=== PATIENT | female | born 1985 | race Caucasian/White ===

== ENCOUNTER 2016-12-25 17:09 | Outpatient (CLI) | payer OTHER ==
[~2016-12-25] VITALS: Ht 160 cm; Wt 96.6 kg
[~2016-12-25 17:09] MED LIST: DICY10CA60 PO; ONDA4TAB35 PO; PREN1TAB49 PO
[2016-12-25 17:24] VITALS: BP 106/56; Ht 160 cm; Wt 96.6 kg
[2016-12-25 18:26] LABS: URINE BLOOD (Dip) POC Negative (NEGATIVE)
--- NOTE | 2016-12-25 18:48 | CONS ---
Date/Time of Note Date/Time of Note DATE: 12/25/16 TIME: 18:43 Consultation Date/Type/Reason Admit Date/Time December 25, 2069 OB triage consult Reason for Consultation This patient is a 31 years old 2 para 1 living 1 who delivered her first child with section . Her estimated date of confinement is 04/23/2017 which makes her 23 weeks now She came to triage clinic complaining of a lower abdominal pressure since last night On general examination she is a well-developed well-nourished lady in her mid . Her vital signs are normal ,blood pressure 106/56, pulse rate 78, respiration 16 ,temperature 98.1. On pelvic examination vulva and vagina appears to be normal cervix is closed and thick and no bladder tenderness Urine was tested with dipstick result is negative Hx of Present Illness Laboratory Tests Test 12/25/16 18:28 Bedside Urine pH (LAB) 6.5 Bedside Urine Protein (LAB) Negative Bedside Urine Glucose (UA) Negative Bedside Urine Ketones (LAB) Negative Bedside Urine Blood Negative Bedside Urine Nitrite (LAB) Negative Bedside Urine Leukocyte Esterase (L Negative Constitutional: No chills, No diaphoresis, No disoriented, No febrile, No improved, No no complaints, No other, No poor po, No requiring IVF, No requiring O2 Eyes: No discharge, No no complaints, No other, No pain, No redness, No visual change ENT: No bleeding, No congestion, No discharge, No dysphagia, No no complaints, No other, No pain, No sore throat Respiratory: No cough, No no complaints, No other, No pain, No pleuritic pain, No shortness of breath, No sputum, No wheezing Cardiovascular: No chest pain, No edema, No lightheadedness, No no complaints, No orthopenea, No other, No palpitations, No paroxysmal nocturnal dyspnea Gastrointestinal: No blood, No constipation, No decreased appetite, No diarrhea , No flatus, No nausea, No no complaints, No other, No pain, No passing stool, No vomiting Genitourinary: other (No bladder tenderness no dysuria), No bleeding, No discharge, No dysuria, No flank pain, No hematuria, No no complaints Musculoskeletal: No back pain, No bone/joint pain, No neck pain, No no complaints, No other, No restricted range of motion, No swelling Skin: No bruising, No erythema, No laceration, No no complaints, No other, No pruritis, No rash, No skin lesions Neurologic: No confusion, No dizziness, No focal-weakness, No headache, No no complaints, No other, No seizure, No syncope Endocrine: No dry skin, No no complaints, No other, No polydypsia, No polyuria , No temp intolerance Lymphatic: No adenopathy, No lymphadema, No no complaints, No other, No tender nodes Psychological: No anxiety, No confusion, No depression, No nl mood/affect, No no complaints, No other, No suicidal Additional Comments With these negative findings patient was reassured and was discharged home to return to the clinic for follow-up or return to hospital in case of a severe pain or vaginal bleeding or any other complaint Social History Smoking Status: Never smoker Exam/Review of Systems Vital Signs Vitals Vital Signs Date Time Temp Pulse Resp B/P Pulse Ox O2 Delivery O2 Flow Rate FiO2 12/25/16 17:24 98.1 106/56 Results Results 24 hrs Laboratory Tests Test 12/25/16 18:28 Bedside Urine pH (LAB) 6.5 Bedside Urine Protein (LAB) Negative Bedside Urine Glucose (UA) Negative Bedside Urine Ketones (LAB) Negative Bedside Urine Blood Negative Bedside Urine Nitrite (LAB) Negative Bedside Urine Leukocyte Esterase (L Negative AYAZ MCLEAN MD December 25, 2016 18:48
== END 2016-12-25 18:47 | disposition home or self-care (01) ==
LOC: OBT 17:09 → L-D 17:10 → OBT 18:47
PROVIDERS: ATTEND Obstetrics & Gynecology
DX: O26.892 Other specified pregnancy related conditions, second trimester (principal); R10.30 Lower abdominal pain, unspecified; Z3A.23 23 weeks gestation of pregnancy
CPT/HCPCS: 81003; G0463

== ENCOUNTER 2017-04-20 08:30 | Inpatient (IN) | payer OTHER ==
[~2017-04-20] VITALS: Ht 157.5 cm; Wt 102.0 kg
[2017-04-22] MEDS ORDERED: LACTATED RINGER'S 1,000 ML IV SCH (05:43)
[2017-04-22] MEDS ORDERED: MISOPROSTOL 200 MCG TAB PR PRN ×2 (06:00→10:00)
[2017-04-22] MEDS ORDERED: CEFAZOLIN 2 GM/50 ML (PMX) 50 ML IV SCH (06:00)
[2017-04-22] MEDS ORDERED: OXYTOCIN 30 UNITS/LR 500 ML IV SCH (06:00)
[2017-04-22] MEDS ORDERED: CARBOPROST 250 MCG INJ IM PRN ×2 (06:00→10:00)
[2017-04-22] MEDS ORDERED: OXYTOCIN 30 UNITS/LR 500 ML IV PRN ×2 (06:00→10:00)
[2017-04-22] MEDS ORDERED: METHYLERGONOVINE 0.2 MG INJ IM PRN ×2 (06:00→10:00)
[2017-04-22 06:07] VITALS: BP 110/56; PULSE 74; RESP 18
[2017-04-22 06:32] LABS: BASOPHIL # 0.1 10^3/ul (0.0-0.1); BASOPHILS % 0.7 % (0.0-2.0); EOSINOPHILS # 0.3 10^3/ul (0.0-0.5); EOSINOPHILS % 3.5 % (0.0-7.0); HEMOGLOBIN 12.7 g/dl (12.0-16.0); LYMPHOCYTES # 3.1 10^3/ul (0.8-2.9); LYMPHOCYTES % 33.8 % (15.0-51.0); MEAN CORPUSCULAR HEMOGLOBIN 29.7 pg (29.0-33.0); MEAN CORPUSCULAR HGB CONC 33.4 g/dl (32.0-37.0); MEAN CORPUSCULAR VOLUME 88.8 fl (82.0-101.0); MEAN PLATELET VOLUME 9.6 fl (7.4-10.4); MONOCYTE # 0.6 10^3/ul (0.3-0.9); MONOCYTES % 6.1 % (0.0-11.0); NEUTROPHILS % 55.5 % (39.0-77.0); PLATELET COUNT 269 10^3/UL (140-415); RED BLOOD COUNT 4.28 10^6/ul (4.20-5.40); RED CELL DISTRIBUTION WIDTH 13.8 % (11.5-14.5); WHITE BLOOD COUNT 9.2 10^3/ul (4.8-10.8)
[2017-04-22 06:46] LABS: INR 0.91; PROTIME 12.3 Sec (12.2-14.2)
[2017-04-22 06:47] LABS: PARTIAL THROMBOPLASTIN TIME 25.5 Sec (25.0-35.0)
[2017-04-22] MEDS ORDERED: EPHEDrine SULFATE 50 MG/5 ML SYG ONE (07:00)
[2017-04-22] MEDS ORDERED: FENTAnyl 50 MCG/ML VIAL ONE (08:20)
[2017-04-22] MEDS ORDERED: morphine SULFATE/PF (10 MG/10 ML) INJ ONE (08:20)
[2017-04-22] MEDS ORDERED: FAMOTIDINE 20 MG INJ IV ONE (08:30)
[2017-04-22] MEDS ORDERED: METOCLOPRAMIDE 10 MG INJ IV ONE (08:30)
[2017-04-22] MEDS ORDERED: CITRIC ACID/NA CITRATE 30 ML CUP PO ONE (08:30)
[2017-04-22] MEDS ORDERED: ONDANSETRON 4 MG INJ ONE (08:53)
[2017-04-22] MEDS ORDERED: OXYTOCIN 30 UNITS/LR 500 ML IV ONE (09:05)
--- NOTE | 2017-04-22 09:14 | PREOPHP ---
DATE OF ADMISSION: 04/22/2017 HISTORY OF PRESENT ILLNESS: Ms. Jordan is a 32-year-old, 3, para 1, EDC 04/23/2017, with intrauterine at 39 weeks and 6 days gestational age, admitted today for a scheduled elective repeat delivery. She denies any contractions, vaginal bleeding or discharge. Her care took place at [facility]. PAST MEDICAL HISTORY: None. MEDICATIONS: vitamins. PAST SURGICAL HISTORY: Times 1 previous . OB HISTORY: Times 1 previous , time 1 missed AB. GYNECOLOGIC HISTORY: 12/ regular every 34 days. Denies any sexually transmitted disease. Sexually active with 1 partner. SOCIAL HISTORY: Denies any smoking, drugs, or alcohol. FAMILY HISTORY: None. REVIEW OF SYSTEMS: All within normal except history of present illness. PHYSICAL EXAMINATION: HEENT: Within normal limits. LUNGS: CTA. CARDIAC: S1, S2. Regular rate and rhythm. ABDOMEN: Gravid and nontender. Negative CVA bilateral. EXTREMITIES: Negative edema. No calf tenderness. PELVIC: Vaginal exam is deferred. ASSESSMENT: A 31-year-old, 3, para 1, with intrauterine at 39 weeks and 6 days gestational age; previous section x1, desires elective repeat delivery, declined . PLAN: Consent for repeat delivery. Risks, benefits and alternatives explained. All questions were answered. Dictated By: Antony Mock MD /maria de jesus/elise /Document#: [id number] [place]
--- NOTE | 2017-04-22 09:55 | SIPON ---
Date/Time of Note Date/Time of Note DATE: 04/22/17 TIME: 09:48 Operative Report Free Text/Dictation Findings a viable female 9 9 respectively and one 5 minutes weight 7 lbs. 11 oz. normal uterus tubes and ovaries Preoperative Diagnosis 32-year-old 3 para 1 intrauterine at 39 weeks and 6 days gestational age previous delivery 1 desires elective delivery declined Postoperative Diagnosis Same Operation/Procedure Performed Repeat low transverse delivery Surgeon: YING ESPINOZA MD faculty i on call medical assistant: LEXA PAROSNS MD Anesthesia Type: spinal Estimated Blood Loss: other (500) Transfusion Required: no Specimen: none Grafts/Implants: none Complications: no YING ESPINOZA MD Apr 22, 2017 09:55
[2017-04-22] MEDS ORDERED: NALOXONE (0.4 MG/ML) INJ IV PRN (10:00)
[2017-04-22] MEDS ORDERED: HYDROmorphONE 1 MG/ML SYG IV PRN ×2 (10:00)
[2017-04-22] MEDS ORDERED: MEPERIDINE 25 MG INJ IV PRN (10:00)
[2017-04-22] MEDS ORDERED: FENTAnyl 50 MCG/ML VIAL IV PRN (10:00)
[2017-04-22] MEDS ORDERED: DIPHENHYDRAMINE 25 MG CAP PO PRN (10:00)
[2017-04-22] MEDS ORDERED: KETOROLAC 30 MG INJ IV PRN (10:00)
[2017-04-22] MEDS ORDERED: BENZOCAINE 20% 56 ML SPRAY TOP PRN (10:00)
[2017-04-22] MEDS ORDERED: HYDROmorphONE (0.2 MG/ML) 10ML SYG IV PRN (10:00)
[2017-04-22] MEDS ORDERED: LANOLIN 7 GM TUBE TOP PRN (10:00)
[2017-04-22] MEDS ORDERED: ZOLPIDEM 5 MG TAB PO PRN ×2 (10:00)
[2017-04-22] MEDS ORDERED: WITCH HAZEL/GLYCERIN PAD PR PRN (10:00)
[2017-04-22] MEDS ORDERED: ONDANSETRON 4 MG INJ IV PRN ×3 (10:00)
[2017-04-22] MEDS ORDERED: OXYCODONE/ASPIRIN (4.88/325) TAB PO PRN ×2 (10:00)
[2017-04-22] MEDS ORDERED: DIPHENHYDRAMINE 50 MG INJ IV PRN ×2 (10:00)
--- NOTE | 2017-04-22 11:01 | OPR ---
DATE OF OPERATION: 04/22/2017 PREOPERATIVE DIAGNOSIS: A 32-year-old 3 para 1 intrauterine at 39 weeks and 6 days gestational age. Previous x1. Desires elective repeat delivery. Declined . POSTOPERATIVE DIAGNOSIS: A 32-year-old 3 para 1 intrauterine at 39 weeks and 6 days gestational age. Previous x1. Desires elective repeat delivery. Declined . OPERATIVE PROCEDURE: Repeat low transverse delivery. SURGEON: Antony Mock MD COURT STENOGRAPHER: Rickey Corral MD ANESTHESIA: Spinal. ESTIMATED BLOOD LOSS: 500 mL. OPERATIVE FINDINGS AT SURGERY: A viable female, 9 and 9 respectively at 1 and 5 minutes, weight 7 pounds 11 ounces. Normal uterus, tubes, and DESCRIPTION OF PROCEDURE: The patient was taken to the operating room, where spinal anesthesia was found to be adequate. She was then prepared and draped in normal sterile fashion in dorsal supine position with a leftward tilt. A Pfannenstiel skin incision was then made with a scalpel and carried through the underlying of the fascia. The fascia was incised in the midline. Incision was extended laterally with Aden scissors. The superior aspect of the fascial incision was grasped with Paul clamps, elevated, and the underlying rectus muscles were dissected off bluntly. Attention was then turned to the inferior aspect incision which in similar fashion was grasped, tented up with Paul clamps and the rectus muscles dissected off bluntly. The rectus muscles in midline. Peritoneum identified, tented up, entered sharply with Metzenbaum scissors. The peritoneal incision was extended superiorly and inferiorly giving good visualization of bladder. The bladder blade was then inserted and the vesicouterine peritoneum identified, grasped with pickups, entered sharply with Metzenbaum scissors. This incision was extended laterally and a bladder flap created digitally. At this point, a low transverse incision was made at the lower uterine segment of the uterus and then the head was delivered atraumatically without any complications. The nose and mouth were suctioned. Cord clamped and cut. The was handed off to waiting oyster buyer. The uterine incision was repaired with 1-0 chromic in a running, locked fashion. A second layer of same suture was used for imbrication and obtained excellent hemostasis. The uterus was returned to the abdomen. The gutters were cleared of all clots. The patient's rectus abdominal muscles were reapproximated with 3-0 Vicryl in an interrupted fashion. The fascia was closed with 0 Vicryl in a running fashion. The subcutaneous tissue was closed with 2-0 plain gut in a running fashion. The skin was closed with absorbable valentina. After the count was correct, the patient was taken to recovery room in stable condition. Dictated By: Antony Mock MD /maria de jesus/derick /Document#: [id number]
[2017-04-22 12:30] VITALS: BP 107/47; PULSE 68; RESP 18
[2017-04-22] MEDS: CEFAZOLIN 2 GM/50 ML (PMX) 50 ML IV SCH ×2 (14:22→21:36)
[2017-04-22] MEDS: KETOROLAC 30 MG INJ IV PRN (14:23)
[2017-04-22] MEDS: LACTATED RINGER'S 1,000 ML IV* SCH ×2 (15:11→23:49)
[2017-04-22 16:00] VITALS: BP 99/51; PULSE 62; RESP 18
[2017-04-22 19:45] VITALS: BP 108/64; PULSE 63; RESP 18
[2017-04-22] MEDS: SENNA/DOCUSATE NA (8.6MG/50MG) TAB PO SCH (21:36)
[2017-04-22 23:30] VITALS: BP 107/66; RESP 18
[2017-04-23] MEDS: LACTATED RINGER'S 1,000 ML IV* SCH (01:55)
[2017-04-23 04:10] VITALS: BP 97/59; PULSE 67; RESP 18
[2017-04-23] MEDS: CEFAZOLIN 2 GM/50 ML (PMX) 50 ML IV SCH (05:43)
[2017-04-23 07:50] VITALS: BP 93/54; PULSE 65; RESP 18
[2017-04-23] MEDS: KETOROLAC 30 MG INJ IV PRN (08:03)
[2017-04-23] MEDS: SENNA/DOCUSATE NA (8.6MG/50MG) TAB PO SCH ×2 (08:35→20:34)
[2017-04-23 10:20] LABS: BASOPHIL # 0.1 10^3/ul (0.0-0.1); BASOPHILS % 0.8 % (0.0-2.0); EOSINOPHILS # 0.1 10^3/ul (0.0-0.5); EOSINOPHILS % 1.1 % (0.0-7.0); HEMATOCRIT 34.2 % (37.0-47.0); HEMOGLOBIN 11.4 g/dl (12.0-16.0); LYMPHOCYTES # 2.4 10^3/ul (0.8-2.9); LYMPHOCYTES % 25.5 % (15.0-51.0); MEAN CORPUSCULAR HEMOGLOBIN 29.8 pg (29.0-33.0); MEAN CORPUSCULAR HGB CONC 33.3 g/dl (32.0-37.0); MEAN CORPUSCULAR VOLUME 89.5 fl (82.0-101.0); MEAN PLATELET VOLUME 9.7 fl (7.4-10.4); MONOCYTE # 0.5 10^3/ul (0.3-0.9); MONOCYTES % 4.9 % (0.0-11.0); NEUTROPHILS % 67.3 % (39.0-77.0); PLATELET COUNT 265 10^3/UL (140-415); RED BLOOD COUNT 3.82 10^6/ul (4.20-5.40); RED CELL DISTRIBUTION WIDTH 14.1 % (11.5-14.5); WHITE BLOOD COUNT 9.2 10^3/ul (4.8-10.8)
[2017-04-23] MEDS: IBUPROFEN 600 MG TAB PO SCH ×3 (11:36→23:21)
[2017-04-23 15:22] VITALS: BP 99/55; PULSE 60; RESP 18
[2017-04-23 19:50] VITALS: BP 114/55; PULSE 76; RESP 18
--- NOTE | 2017-04-23 19:50 | QN ---
Documentation Comment Progress note postoperative day 1 Patient was seen and evaluated awake alert oriented 3 positive ambulation positive flatulence positive voiding Vital signs stable afebrile Abdomen clean dry and intact negative distention nontender Extremity negative edema no calf tenderness Assessment status post delivery postop day 1 stable afebrile Plan continue present management Encourage ambulation YING ESPINOZA MD Apr 23, 2017 19:50
[2017-04-24 03:50] VITALS: BP 106/58; PULSE 66; RESP 20
[2017-04-24] MEDS: IBUPROFEN 600 MG TAB PO SCH ×4 (05:41→23:53)
[2017-04-24 08:00] VITALS: BP 107/53; PULSE 63; RESP 18
[2017-04-24] MEDS: SENNA/DOCUSATE NA (8.6MG/50MG) TAB PO SCH ×2 (09:36→21:15)
--- NOTE | 2017-04-24 12:29 | QN ---
Documentation Comment Progress note postop day 2 She is seen and evaluated awake alert oriented 3 Visit of ambulation tolerating diet positive flatulence positive bowel movement Vital signs stable afebrile Abdomen clean dry and intact negative distention nontender uterine fundus firm below umbilicus Extremity negative edema no calf tenderness Assessment status post delivery postop day 2 stable afebrile Plan discharge home tomorrow YING ESPINOZA MD Apr 24, 2017 12:29
--- NOTE | 2017-04-24 12:29 | PD.PPDC ---
SENIOR OCCUPATIONAL THERAPIST Discharge Instruction Condition Patient Condition: Good Diet Diet: Resume Regular Diet Activity/Restrictions Activity: Normal Activity May Shower Wound/Drain Care Instructions Wound/Drain Care Instructions: Remove Steri Strips in 2 weeks Follow-up Follow-up with Physician: 2, Week/Weeks Return to clinic for [employer] Instructions: Fever greater than 101 Chills Worsening abdominal pain Excessive Vaginal Bleeding More than 2 pads per hour Unable to tolerate diet OB Instructions: Breast Tenderness Depression Blurried Vision Headache Surgical Instructions: Incisional Drainage Incisional Redness YING ESPINOZA MD Apr 24, 2017 12:29
[2017-04-24 15:28] VITALS: BP 93/68; PULSE 66; RESP 16
[2017-04-24 16:30] VITALS: BP 112/60; PULSE 72; RESP 18
--- NOTE | 2017-04-24 19:50 | DS ---
DATE OF ADMISSION: 04/22/2017 DATE OF DISCHARGE: 04/25/2017 PRIMARY DIAGNOSES: 1. A 32-year-old, 3, para 1, intrauterine at 39 weeks and 6 days gestational age. 2. Previous times 1. 3. Desires elective repeat delivery. 4. Declined vaginal after (). PROCEDURE: Repeat low transverse delivery. DISCHARGE CONDITION: Stable. DISCHARGE INSTRUCTIONS: Nothing vaginal. No heavy lifting x 6 weeks. Diet regular. DISCHARGE MEDICATIONS: Motrin Percocet. DISCHARGE SUMMARY: Ms. Ca Jordan is 32-year-old, 3, para 2, status post repeat low transverse delivery on 04/22/2017. She had a viable female, 9 and 9 respectively at 1 and 5 minutes, weight 7 pounds 11 ounces. She had uneventful postop day 1 and 2. She was discharged on postop day 3. Her incision is clean, dry, intact. She is ambulating, tolerating diet, positive flatulence and positive bowel movement. She will follow up in the office in 2 weeks for /postop care. Dictated By: Antony Mock MD /maria de jesus/rico /Document#: [id number]
[2017-04-24 20:00] VITALS: BP 118/68; PULSE 76; RESP 18
[2017-04-25 04:00] VITALS: BP 100/59; PULSE 65; RESP 17
[2017-04-25] MEDS: IBUPROFEN 600 MG TAB PO SCH ×2 (05:46→11:51)
[2017-04-25 07:50] VITALS: BP 107/68; PULSE 66; RESP 18
[2017-04-25] MEDS: SENNA/DOCUSATE NA (8.6MG/50MG) TAB PO SCH (09:25)
== END 2017-04-25 12:50 | disposition home or self-care (01) | DRG 766 ==
LOC: L-D 04-22 05:20 → PP1 04-22 12:07
PROVIDERS: ADMIT Obstetrics & Gynecology; ATTEND Obstetrics & Gynecology
PROC: 10907ZC Drainage of Amniotic Fluid, Therapeutic from Products of Conception, Via Natural or Artificial Opening (ICD-10-PCS; 2017-04-22)
PROC: 3E033VJ Introduction of Other Hormone into Peripheral Vein, Percutaneous Approach (ICD-10-PCS; 2017-04-22)
PROC: 10D00Z1 Extraction of Products of Conception, Low, Open Approach (ICD-10-PCS; principal; 2017-04-22 07:30)
DX: O34.211 Maternal care for low transverse scar from previous cesarean delivery (principal); Z37.0 Single live birth; Z3A.39 39 weeks gestation of pregnancy
CPT/HCPCS: 85025; 85610; 85730; 86592; 86850; 86900; 86901; 87340; 94760; 99464; J0690; J1885; J2274; J2405; J2590; J2765; J3010; J7120

== ENCOUNTER 2019-04-24 14:30 | Emergency (ER) | payer OTHER ==
[~2019-04-24] VITALS: Ht 160 cm; Wt 95.6 kg
[~2019-04-24 14:30] MED LIST changes: +BEN25 PO; +CETI10TA34 PO; -DICY10CA60 PO; +HYDR28.334 TP; +LIDO454G TP; -ONDA4TAB35 PO; -PREN1TAB49 PO
[2019-04-24 14:42] VITALS: BP 116/64; PULSE 72; RESP 16; Ht 160 cm; Wt 95.6 kg
== END 2019-04-24 15:21 | disposition home or self-care (01) ==
LOC: E/R 14:30
DX: R21 Rash and other nonspecific skin eruption (principal); Z87.891 Personal history of nicotine dependence
CPT/HCPCS: 99282